=== PATIENT | male | born 1995 | race African-American/Black ===

== ENCOUNTER 2018-12-27 01:24 | Emergency (ER) | payer MEDICAID ==
[~2018-12-27] VITALS: Ht 180.3 cm; Wt 84.0 kg
[~2018-12-27 01:24] MED LIST: DIVA-18; TRAZ150T78
[2018-12-27] MEDS ORDERED: ALBUTEROL (0.083%) 2.5MG/3ML NEB HHN STA (02:15)
[2018-12-27] MEDS ORDERED: IPRATROPIUM BROMIDE (0.02%) 0.5MG/2.5ML NEB HHN STA (02:15)
[2018-12-27] MEDS ORDERED: PREDNISONE 20MG TABLET PO STA (02:15)
[2018-12-27 06:07] VITALS: BP 129/68
== END 2018-12-27 06:09 | disposition home or self-care (01) ==
LOC: ER 01:24
DX: J45.901 Unspecified asthma with (acute) exacerbation (principal); F17.200 Nicotine dependence, unspecified, uncomplicated; Z88.8 Allergy status to other drugs, medicaments and biological substances
CPT/HCPCS: 94640; 99283; J7512; J7611; Z7610